=== PATIENT | female | born 1995 | race Hispanic/Latino ===

== ENCOUNTER 2025-01-06 17:44 | Emergency (ER) | payer BC, SELFPAY ==
[2025-01-06 17:56] VITALS: BP 152/102
[2025-01-06 18:35] LABS: Hematocrit 40.6 % (37.0-47.0); Hemoglobin 13.9 g/dL (12.0-16.0); Mean Corp Hgb Conc. 34.2 g/dL (33.0-37.0); Mean Corpuscular Volume 91.0 fL (81.0-99.0); Nucleated Red Blood Cells % 0 %; Platelet Count 329 10^3/uL (130-400); Red Cell Dist. Width 12.8 % (11.5-14.5)
[2025-01-06 18:44] LABS: Blood Urea Nitrogen 16 mg/dl (7-17); Calcium 10.1 mg/dl (8.4-10.2); Carbon Dioxide 23 mmol/L (22-30); Chloride 104 mmol/L (98-107); Glucose 106 mg/dl (70-99); Potassium 4.2 mmol/L (3.5-5.1); Sodium 137 mmol/L (135-145); eGFR > 60.00
[2025-01-06 20:29] VITALS: BP 147/99
[2025-01-06 22:45] VITALS: BP 122/90; BMI 29.3
--- NOTE | 2025-01-06 22:51 | ED.GENMED ---
History of Present Illness
General
Chief Complaint: Skin Problem
Source: patient
Exam Limitations: none
Time Seen by Provider: 01/06/25 22:07
Nursing documentation reviewed up to this point in time: agreed with
History of Present Illness
History of Present Illness:
Note:
CHIEF COMPLAINT(S)
Rash with itching and swelling.
HISTORY OF PRESENT ILLNESS
The patient is a 29-year-old female who presents with a rash right medial lower leg that began over a week ago. Initially, it appeared as a small scab that the patient attempted to remove, after which it became itchy. By , the area became
sensitive, particularly when touched by covers. On Monday, the rash began to protrude, and by the weekend, it had significantly worsened. The patient describes the sensation as 'crawling up and down' with increased itchiness. She denies any recent
fever. The patient was started on doxycycline on Monday, and prednisone was also initiated for a three-day course. She revisited urgent care yesterday, where she was advised to continue doxycycline and was prescribed cephalexin, which she has not
yet picked up. The patients workplace recommended seeking further medical attention given the persistence and spread of symptoms. Benadryl and hydrocortisone cream have been applied but cause stinging. The clinical suspicion suggests a possible
local contact dermatitis. Blood work, however, returned without signs of infection, indicating a normal white blood cell count.
SOCIAL HISTORY
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
MEDICATIONS
- Doxycycline (currently prescribed)
- Prednisone (previously prescribed for three days)
- Cephalexin (prescribed but not yet collected)
- control
- Wellbutrin
PROBLEM LIST
Acute Problems:
- Rash with swelling and itching
- Possible contact dermatitis
PLAN
- Continue doxycycline to cover any possible underlying infection.
- Reinstate prednisone therapy to manage inflammation.
- will add topical steroid
- Advise patient to avoid scratching the affected area.
- Evaluate the efficacy of current treatment regimen and reassess if the condition worsens or fails to improve.
DIFFERENTIAL DIAGNOSIS
The Differential Diagnosis includes, in no particular order and is not limited to:
- Contact dermatitis
- Insect bite or sting reaction
- Allergic reaction
- Viral exanthema
- Staphylococcal or streptococcal skin infection
- Fungal infection
- Eczema
- Psoriasis
- Dermatitis herpetiformis
- Pemphigoid
Past History
Social History
Tobacco: Non-smoker
Personal: Single
Living: with family
Employment: Not employed
Phy Exam
Physical Exam
Physical Exam:
GENERAL: 29-year-old female appears her stated age, bright and alert, pleasant, appears in no acute distress. Afebrile.
EYE: anicteric
NECK: Supple, nontender, no meningismus, no significant adenopathy.
ENT: oral mucosa is moist. No rhinorrhea.
CARDIAC: Regular rate and rhythm. no murmur.
LUNGS: Clear breath sounds bilaterally, no acute respiratory distress, no wheezes/rales/rhonchi
ABDOMEN: Soft, nondistended, without focal tenderness
NEUROLOGICAL: Alert and oriented x3, no focal neuro deficits. Gait is lay and steady.
SKIN: Warm and dry, normal color, good turgor. Right medial lower leg has a 5 cm x 6 cm inflamed, firm vesicular eruption with minimally erythematous border. Moderately pruritic. There is no eschar, no necrosis, no ulceration, no lymphangitis nor
palpable heat. No drainage. No fluctuance.
MUSCULOSKELETAL: No C/C/E. peripheral pulses are full and equal b/l. No palpable tenderness.
PSYCH: Normal and appropriate interaction.
Course
Orders/Labs/Results
Orders:
Orders
01/06/25 18:14
BMP [Basic Metabolic Panel] Urgent
Complete Blood Count/With Diff Urgent
01/06/25 22:44
Prednisone [Deltasone] 50 mg PO NOW STA
01/06/25 22:58
Fluocinonide [Fluocinonide 0.05% Cream] See Dose Instructions TOPICAL NOW STA
Abnormal Lab Results
01/06/25
18:14
MCH 31.2 H pg
(27.0-31.0)
Glucose 106 H mg/dl
(70-99)
01/06/25 18:14
01/06/25 18:14
Vital Signs
Initial and Last Documented VS:
Initial Vital Signs
Temp Pulse Resp BP Pulse Ox
98.7 F 84 16 152/102 96
01/06/25 17:56 01/06/25 17:56 01/06/25 17:56 01/06/25 17:56 01/06/25 17:56
Last Documented Vital Signs
Temp Pulse Resp BP Pulse Ox
98.5 F 78 18 122/90 98
01/06/25 20:29 01/06/25 22:45 01/06/25 22:45 01/06/25 22:45 01/06/25 22:52
MDM/Problems Addressed
Differential Diagnosis Includes:
As above
*Pulse Oximetry
SaO2: 98
Oxygen Mode of Delivery: Room air
Patient hypoxic: no
*Critical Care Note
Total Time (30-74mins, 75-104mins- exclusive of procedures): Not Applicable
Patient Management
Escalation/DeEscalation of care consider admission/obs:
Overall well in appearance.
No definitive evidence of cellulitis and reassuring that patient has not had a fever.
Rash appears local inflammatory in nature such as a contact dermatitis.
Labs are reassuring. Normal white blood cell count. Normal chemistries. She remains afebrile and no reported recent fever.
Recommend continuing doxycycline for potential secondary infection and will add a lengthier course of prednisone taper as well as higher strength topical steroid.
Will refer to dermatology for further evaluation as needed especially if rash does not improve over the next several days or if it appears to worsen.
Return precautions discussed especially if she develops a fever, severe pain etc.
ED Attending Note
-
Portions of this chart may have been created with voice recognition software.� Occasional wrong word or��sound alike� substitutions may have occurred due to the inherent limitations of voice recognition software.
Discharge Plan
Departure
Patient Disposition: Home (Routine Discharge)
Date of Disposition: 01/06/25
Time of Disposition: 23:58
Patient with high blood pressure during this ER visit?: No
Condition: Good
Discharge Problem:
contact dermatitis right lower leg
Instructions: Dermatitis ( Contact )
Prescriptions:
New
prednisone 10 mg Tablet
See Rx Instructions .ROUTE .COMPLEX Qty: 30 0RF
Rx Instructions:
Take By Mouth:
40 mg daily x3 days, 30 mg daily x3 days,
20 mg daily x3 days, 10 mg daily x3 days.
fluocinolone 0.025 % cream
1 applic topical BID Qty: 15 0RF
No Action
prednisone 20 MG tablet
40 mg PO DAILY Qty: 8 0RF
Referrals:
NONE,* [Family Provider, Internal Medicine]
Jil Alatorre MD [Consulting Staff, Dermatology] - As needed
Interventions
Interventions:
*Risk Screen - Suicide Last Done: 01/06/25 23:15
*General Assessment Last Done: 01/06/25 23:15
*Neglect/Abuse Screening Last Done: 01/06/25 23:15
*ED- Fall Risk Assessment Last Done: 01/06/25 23:15
*ED COVID-19 Vaccine History Last Done: 01/06/25 23:15
ED-Skin Assessment Last Done: 01/06/25 22:46
Discharge Date and Time
Print Language: STATELESS
[2025-01-06] MEDS: DELTASONE 50 MG PO (23:01)
[2025-01-07] MEDS: FLUOCINONIDE 0.05% CREAM 1 APPLIC TOPICAL (00:06)
== END 2025-01-07 00:10 | disposition home or self-care (01) ==
LOC: EMR 17:44
PROVIDERS: Emergency Medicine; EMERGENCY PHYSICIAN Emergency Medicine
DX: L25.9 Unspecified contact dermatitis, unspecified cause (principal)
CPT/HCPCS: 99283; 80048; 85025